=== PATIENT | male | born 1990 | race African-American/Black ===

== ENCOUNTER 2020-11-22 11:34 | Emergency (ER) | payer OTHER ==
[~2020-11-22] VITALS: Ht 180.3 cm; Wt 72.6 kg
[2020-11-22 12:14] LABS: URINE BILIRUBIN NEGATIVE (Negative); URINE BLOOD NEGATIVE (Negative); URINE CLARITY CLEAR; URINE COLOR YELLOW; URINE GLUCOSE-RANDOM* NEGATIVE (Negative); URINE KETONES TRACE (Negative); URINE LEUKOCYTES-REFLEX NEGATIVE (Negative); URINE NITRITE-REFLEX NEGATIVE (Negative); URINE PROTEIN (DIPSTICK) NEGATIVE (Negative); URINE SPECIFIC GRAVITY 1.025 (1.005-1.035); URINE UROBILINOGEN 0.2 E.U./dl (0.2-1.0)
[2020-11-22 12:24] LABS: AMP/METHAMP Negative (Negative); BARBITURATES Negative (Negative); BENZODIAZEPINES Negative (Negative); COCAINE POSITIVE (Negative); METHADONE Negative (Negative); OPIATES Negative (Negative); PCP Negative (Negative)
[2020-11-22 12:29] LABS: ABSOLUTE NEUTROPHILS 1.7 thou/uL (1.4-8.2); HEMATOCRIT 48.8 % (42.0-52.0); HEMOGLOBIN 16.3 gm/dL (14.0-18.0); LYMPHOCYTES 51.5 % (24.0-44.0); MCHC 33.5 g/dL (28.0-37.0); MCV 95.6 fL (80.0-100.0); MONOCYTES 8.6 % (1.0-8.0); PLATELET COUNT 266 thou/uL (150-400); POLYS 35.9 % (36.0-66.0); RBC 5.11 mil/uL (4.50-6.00); RDW 12.9 % (10.5-14.5); WBC 4.7 thou/uL (4.0-11.0)
[2020-11-22 12:32] LABS: CALCIUM 9.5 mg/dL (8.5-10.1); CREATININE 1.2 mg/dL (0.7-1.3); POTASSIUM 3.7 mmol/L (3.5-5.1)
[2020-11-22 12:38] LABS: ALBUMIN 4.5 g/dL (3.4-5.0); TOTAL BILIRUBIN 0.5 mg/dL (0.2-1.0); TOTAL PROTEIN 7.9 g/dL (6.4-8.2)
[2020-11-22] MEDS ORDERED: PHENERGAN 25 MG25 M1 PO (14:46)
[2020-11-22 15:09] VITALS: BP 117/64
== END 2020-11-22 15:09 | disposition home or self-care (01) ==
LOC: ER 11:34
PROVIDERS: Physician Assistant
DX: R10.9 Unspecified abdominal pain (principal); R11.2 Nausea with vomiting, unspecified; R05 Cough; R06.02 Shortness of breath; F12.90 Cannabis use, unspecified, uncomplicated

== ENCOUNTER 2020-11-23 23:09 | Emergency (ER) | payer OTHER ==
[~2020-11-23] VITALS: Ht 172.7 cm; Wt 65.8 kg
[~2020-11-23 23:09] MED LIST: PHENERGAN 25 MG25 M1 PO
[2020-11-24] MEDS ORDERED: BENADRYL ALLERG25 MG PO (00:53)
[2020-11-24 01:17] VITALS: BP 133/83
== END 2020-11-24 01:19 | disposition home or self-care (01) ==
LOC: ER 23:09
DX: R25.8 Other abnormal involuntary movements (principal); T43.4X5A Adverse effect of butyrophenone and thiothixene neuroleptics, initial encounter; F12.90 Cannabis use, unspecified, uncomplicated; Y92.89 Other specified places as the place of occurrence of the external cause